=== PATIENT | male | born 1960 | race Caucasian/White ===

== ENCOUNTER → 2016-06-28 | Outpatient (CLI) | payer BC ==
[~2016-06-28] MED LIST: FAMOTIDINE PO; OMEPRAZOLE40 M1 PO; PRILOSEC40 MG PO; ZOLOFT50 MG PO
--- NOTE | ~2016-06-28 | CT137 ---
[facility] A Service of [facility] & [facility] RADIOLOGY TEXT RESULTS PATIENT: WM MAHMOOD LOCATION: [facility] : 60 UNIT #: [id number] AGE: [address]: Heather Rojas MD SEX: M ORDER DR: [id number] [address] [id number] MR#: [id number] Acc #: [id number] NAME: WM MAHMOOD : 1960 SEX: M STUDY DATE/TIME: 07/28/2016 13:56 UNIT: [facility] ROOM: STUDY DESCRIPTION: CT Lung Screening annual Attending Physician: Heather Rojas M.D. Referring Physician: Heather Rojas M.D. Ordering Physician: Heather Rojas M.D. Primary Care Physician: Heather Rojas M.D. MEDICAL IMAGING REPORT This report is preliminary unless electronic signature is present. EXAM Chest CT of lung cancer low-dose screening protocol 07/28/2016 INDICATIONS 56-year-old male with a history of congestion for 2 weeks, annual lung cancer screening. 41 years of tobacco abuse (1 pack per day x 41 years). TECHNIQUE Noncontrast CT of the chest was performed utilizing a low-dose lung cancer screening protocol. This CT exam was performed with one or more of the following radiation dose reduction techniques: automatic exposure control, adjustment of mA and/or kV according to patient size, and iterative reconstruction. COMPARISON STUDIES 05/29/[address] CHEST: The lungs demonstrate mild emphysematous change. No suspicious pulmonary nodule. No pleural effusion. Incidental subtle secretions within the right lower lobe bronchus. Incidental atelectasis or scarring in the right middle lobe. Included thyroid unremarkable. No pericardial effusion. Incidental gynecomastia. Reactive-appearing axillary and mediastinal nodes. Aorta demonstrates no aneurysm. Included upper abdomen demonstrates surgical absence of the gallbladder. There is a low-attenuation lesion in the dome of the right hepatic lobe measuring about 2.4 cm which is stable to smaller than on the prior study. It was better characterized on a prior CT of 11/01/2013 where it demonstrated imaging features most characteristic of a benign hemangioma. Dimensions are unchanged for technical factors. [facility]. [facility] A Service of [facility] & [facility] RADIOLOGY TEXT RESULTS PATIENT: WM MAHMOOD LOCATION: [facility] : 60 UNIT #: [id number] AGE: [address]: Heather Rojas MD SEX: M ORDER DR: Osseous structures demonstrate no new suspicious bone lesion. Chronic wedge deformities in the thoracolumbar junction region. IMPRESSION 1. Essentially negative examination. No suspicious pulmonary nodule identified. No pleural effusion or adenopathy. 2. Upper abdomen demonstrates an incidental benign hemangioma in the liver better characterized on prior contrast-enhanced abdomen and pelvis CT 11/01/2013. 3. Lung RADS category 1. 1. Dictated by... Walker Arnett M.D. THIS IS AN ELECTRONICALLY VERIFIED REPORT Walker Arnett M.D. at 07/28/2016 5:33 PM See TD: 07/28/2016 15:34 JOB #: [id number] MEDICAL IMAGING REPORT Page 1 of 1
== END | disposition home or self-care (01) ==
LOC: SCT 08:34
DX: F17.210 Nicotine dependence, cigarettes, uncomplicated (principal)
CPT/HCPCS: G0297